=== PATIENT | female | born 1940 | race Caucasian/White ===

== ENCOUNTER 2020-11-08 17:52 | Emergency (ER) | payer OTHER ==
[~2020-11-08] VITALS: Ht 157.5 cm; Wt 51.5 kg
[2020-11-08 18:56] LABS: ABSOLUTE NEUTROPHILS 5.5 thou/uL (1.4-8.2); BASOPHILS 1.4 % (0.0-2.0); EOSINOPHILS 4.1 % (0.0-3.0); HEMATOCRIT 28.4 % (37.0-47.0); HEMOGLOBIN 9.5 gm/dL (12.0-15.0); LYMPHOCYTES 13.7 % (24.0-44.0); MCH 32.1 pg (26.0-34.0); MCHC 33.6 g/dL (28.0-37.0); MCV 95.4 fL (80.0-100.0); MONOCYTES 7.4 % (1.0-8.0); PLATELET COUNT 264 thou/uL (150-400); POLYS 73.4 % (36.0-66.0); RBC 2.98 mil/uL (4.20-5.00); RDW 13.9 % (10.5-14.5); WBC 7.5 thou/uL (4.0-11.0)
[2020-11-08 19:05] LABS: CALCIUM 9.3 mg/dL (8.5-10.1); CREATININE 1.6 mg/dL (0.6-1.0)
[2020-11-08 19:12] LABS: ALBUMIN 3.4 g/dL (3.4-5.0); TOTAL BILIRUBIN 0.3 mg/dL (0.2-1.0); TOTAL PROTEIN 6.6 g/dL (6.4-8.2)
[2020-11-08 19:17] LABS: URINE BILIRUBIN NEGATIVE (Negative); URINE BLOOD 1+ (Negative); URINE COLOR YELLOW; URINE GLUCOSE-RANDOM* NEGATIVE (Negative); URINE KETONES NEGATIVE (Negative); URINE NITRITE-REFLEX NEGATIVE (Negative); URINE PROTEIN (DIPSTICK) NEGATIVE (Negative); URINE SPECIFIC GRAVITY 1.025 (1.005-1.035); URINE UROBILINOGEN 0.2 E.U./dl (0.2-1.0)
[2020-11-08 19:20] LABS: URINE CLARITY HAZY; URINE LEUKOCYTES-REFLEX 2+ (Negative)
[2020-11-08 19:24] LABS: BACTERIA-REFLEX >30 Many /HPF (None Seen); CASTS None Seen /LPF (None Seen); CRYSTALS None Seen /LPF (None Seen); SQUAMOUS 0-3 Few /LPF (0-3); URINE RBC 3-10 Few /HPF (0-2)
[2020-11-09 05:23] VITALS: BP 140/50
[2020-11-09] MEDS ORDERED: ASA81BEC PO (06:39)
[2020-11-09] MEDS ORDERED: LIPITOR40 MG PO (06:45)
[2020-11-09] MEDS ORDERED: BUSPIRONE HCL5 MG PO (06:53)
[2020-11-09] MEDS ORDERED: FENOFIBRATE160 MG PO (06:55)
[2020-11-09] MEDS ORDERED: LISINOPRIL20 MG PO (06:57)
[2020-11-09] MEDS ORDERED: LOPERAMIDE2 MG PO (06:58)
[2020-11-09] MEDS ORDERED: TYLENOL325 M1 PO (07:00)
[2020-11-09] MEDS ORDERED: MECLIZINE HCL25 M1 PO (07:01)
[2020-11-09] MEDS ORDERED: MELATONIN3 M1 PO (07:02)
[2020-11-09] MEDS ORDERED: METFORMIN HCL500 M3 PO (07:03)
[2020-11-09] MEDS ORDERED: ZOFRAN4 MG PO (07:04)
[2020-11-09] MEDS ORDERED: SERTRALINE HCL100 MG PO (07:05)
[2020-11-09] MEDS ORDERED: PLAVIX 75 MG TA75 MG PO (07:05)
[2020-11-09] MEDS ORDERED: ZETIA10 MG PO (07:06)
--- NOTE | 2020-11-09 07:21 | EKG ---
[place] [address] [employer] [facility] [place] [address] ELECTROCARDIOGRAM REPORT Name: JUSTICE ELLISON Room #: [facility]#: [id number] Admission: 11/08/20 Attend Phys: Discharge: 11/09/20 Date of : 36 Report #: [id number] [facility] ED Test Date: 2020-11-08 Test Time: 18:21:21 Pat Name: JUSTICE ELLISON Department: Room: Gender: F Elastic Assembler: MANUELA BURTON : 1940 Requested By: Rodrigo Lucero Order Number: [id number] MD: Parviz Tolliver Measurements Intervals [place] Rate: 70 P: 11 NM: 156 QRS: -13 QRSD: 86 T: 42 QT: 416 QTc: 449 Interpretive Statements Sinus rhythm Abnormal R-wave progression, late transition No previous ECG available for comparison Electronically Signed On 11-09-2020 7:21:31 MEAT STRINGER by Parviz Tolliver [email or web address] <ELECTRONICALLY SIGNED> By: Parviz Tolliver MD, [facility] 11/09/20 0721 20 20 Parviz Tolliver MD, FACC /EPI
== END 2020-11-09 05:35 | disposition still patient (30) ==
LOC: ER 17:52
PROVIDERS: Emergency Medicine
DX: R41.0 Disorientation, unspecified (principal); E11.9 Type 2 diabetes mellitus without complications; Z88.1 Allergy status to other antibiotic agents; Z88.0 Allergy status to penicillin; Z88.2 Allergy status to sulfonamides; Z88.8 Allergy status to other drugs, medicaments and biological substances; Z20.828 Contact with and (suspected) exposure to other viral communicable diseases

== ENCOUNTER 2020-11-09 05:40 | Inpatient (IN) | payer OTHER ==
[~2020-11-09] VITALS: Ht 154.9 cm; Wt 55.8 kg
--- NOTE | 2020-11-09 06:36 | NUR ---
Patient arrived on the [facility] floor via stretcher @ 05:45 accompanied by x1 staff from [facility] Emergency Department. VS 141/68 61 97.9F 96% weight 108.2 height 5'7".Dr Hancock is the hospitalist consult, Miya Kevin YOUTH PASTOR advised @ 06:25. Laid down in bed, bed alarm set as patient is a fall risk. Patient cooperated with assessment, HRRR, Lungs CTA, ABD N x 4Q. L wrist noted to have a skin tear and bruise with 4 steri strips. Right wrist has a D/C IV site wrapped in Coban. Buttocks noted to be without skin breakdown, Incontinent of bladder. Likes to be called Rukhsana or Mrs Rodrigues. Knows that she is at a Hospital, but unsure which hospital. Knows that the President was a electromedical service engineer and that his first name is Keenan, unsure of his last name. Does not know the date, or where she lives. A&Ox3. When asked where she lives and if she feels safe, unable to answer either of these questions. Denies pain. Denies chronic pain.
[2020-11-09] MEDS ORDERED: ASA81BEC PO (06:39)
[2020-11-09] MEDS ORDERED: LIPITOR40 MG PO (06:45)
[2020-11-09] MEDS ORDERED: BUSPIRONE HCL5 MG PO (06:53)
[2020-11-09] MEDS ORDERED: FENOFIBRATE160 MG PO (06:55)
[2020-11-09] MEDS ORDERED: LISINOPRIL20 MG PO (06:57)
[2020-11-09] MEDS ORDERED: LOPERAMIDE2 MG PO (06:58)
[2020-11-09] MEDS ORDERED: TYLENOL325 M1 PO (07:00)
[2020-11-09] MEDS ORDERED: MECLIZINE HCL25 M1 PO (07:01)
[2020-11-09] MEDS ORDERED: MELATONIN3 M1 PO (07:02)
[2020-11-09] MEDS ORDERED: METFORMIN HCL500 M3 PO (07:03)
[2020-11-09] MEDS ORDERED: ZOFRAN4 MG PO (07:04)
[2020-11-09] MEDS ORDERED: SERTRALINE HCL100 MG PO (07:05)
[2020-11-09] MEDS ORDERED: PLAVIX 75 MG TA75 MG PO (07:05)
[2020-11-09] MEDS ORDERED: ZETIA10 MG PO (07:06)
[2020-11-09 12:16] VITALS: BP 157/67
--- NOTE | 2020-11-09 13:56 | NUR ---
1350 RESUMMED CARE FROM OVERNIGHT SHIFT THIS AM, PATIENT IN DAY ROOM QUIET. PATIENT ATE BREAKFAST TOOK MEDICATION CRUSHED IN APPLESAUCE PATIENT IS ALERT CONFUSED AND ORIENTED TO SELF ONLY. PATIENTS ABDOMEN SOFT BOWEL SOUNDS PRESENT LUNGS CLEAR. PATIENT IS TEARFUL BECAUSE SHE WANTS TO LEAVE PACING THE HALLS SHE HAS ANXIETY. PATIENT UNABLE TO TELL ME ABOUT SI/HI/AH/VH AT PRESENT DUE TO CONFUSION. WE TRIED DISTRACTION TO HELP BE LESS ANXIOUS AND TALKED WITH HER. WE WILL CONTINUE TO MONITOR PATIENT FOR SAFETY AND BEHAVIORS.
[2020-11-09 19:52] VITALS: BP 110/41
--- NOTE | 2020-11-10 03:45 | NUR ---
Assumed care of patient this pm shift. Patient anxious, appears fearful and states that she is scared. Alert and oriented to self. Takes medications crushed with ice cream. Incontinent of bowel and bladder. Needs assistance to toilet. Patient was difficult to get in her room as she was fearful to go in. Denies pain. Denies hi/si. Assessment shows no signs of acute distress. We will continue to monitor per hospital protocol.
--- NOTE | 2020-11-10 08:41 | NUR ---
PT FINISHED BREAKFAST AND ATTENDING GROUP. PT PARTICIPATING IN GROUP. PT TOOK MEDS THIS AM CRUSHED IN APPLE SAUCE. PT DIDN'T LIKE THE TASTE. PT LUNGS CLEAR. PT DENIES ANY PAIN. PT HAS A SKIN TEAR TO LEFT FA THAT HAS STERI-STRIPS INTACT.
[2020-11-10 09:00] VITALS: BP 110/62
[2020-11-10 09:49] VITALS: BP 168/116
--- NOTE | 2020-11-10 10:30 | NUR ---
RECHECKED PT BLOOD PRESSURE MANUALLY ON RT ARM 110/62. DR. GROSSMAN HERE FOR BP RESULTS. WILL NOT ADD ADDITIONAL NORVASC AT THIS TIME IF BP STABLE PER DR. GROSSMAN.
[2020-11-10 11:00] VITALS: BP 110/62
--- NOTE | 2020-11-10 11:10 | NUR ---
ASSISTED PT WITH BRIEF CHANGE. PT WAS IN ANOTHER ROOM WITH THE DOOR CLOSED. PT TRYING TO CHANGE SELF. ASSISTED WITH BRIEF CHANGE AND NEW PANTS. PT COOROPERATED WELL.
--- NOTE | 2020-11-10 16:06 | NUR ---
SW attempted several times to speak with the Pt and complete the psychosocial. Pt will not talk to SW and walks away when SW approaches. Pt seems fearful refusing to talk. LIBRA was able to speak with Ashlyn at [facility], and provide an update on the Pt. Sw reached out to BRIAN Green, however she was unable to talk. LIBRA will follow up.
--- NOTE | 2020-11-10 16:52 | NUR ---
APPROACHED PT FOR BLOOD SUGAR CHECK AND PT DIDN'T WANT THIS BOAT CLEANER TO CHECK. THIS BOAT CLEANER SAID NO AND SHE SAID I DIDN'T SAY NO, PT HAD THE ACTIONS OF NO BLOOD SUGAR WITH ARMS ACROSS CHEST AND SHAKING HEAD NO.
--- NOTE | 2020-11-10 17:17 | NUR ---
ENCOURAGED PT TO EAT DINNER AND SHE IS JUST PACING AROUND DINING ROOM AND PEREZ. PT STANDING AT DESK ALSO. PT NOT LETTING NEEDS KNOWN.
--- NOTE | 2020-11-10 17:54 | NUR ---
PT WAS STANDING INFRONT OF THE MEAL CART AND WASN'T WANTING TO LET GO. PT THEN GRABBED THIS STREETCAR MOTORMAN WRIST AND SQUEEZING AND TRYING TO PINCH. PULP PLANT SUPERVISOR TALKING WITH HER TO SEE IF SHE CAN WALK WITH THIS STREETCAR MOTORMAN. PT WALKING DOWN THE PEREZ WITH THIS STREETCAR MOTORMAN AND KEPT HOLDING ONTO NURSING ARMS. THIS STREETCAR MOTORMAN GOT KEYS OUT AND TO UNLOCK HER ROOM AND PT GRABBED AHOLD OF THE KEYS AND WOULDN'T LET GO. PULP PLANT SUPERVISOR CAME BACK AND ASSISTED TO GET PT TO LEFT GO OF STAFF. ANOTHER NURSE ACCOMPANIED THE PT TO THE DINING ROOM TO TRY TO HAVE HER SIT WITH HER. PT IS STANDING UP AND HOLDING ONTO PT ARMS.
--- NOTE | 2020-11-10 17:58 | NUR ---
PAGED DR. REYNA AND NOTIFIED HER ABOUT PT BEHAVIOR. DR. REYNA HERE TO ASSESS SITUATION.
--- NOTE | 2020-11-10 18:05 | NUR ---
Updates Faxed to [facility]
--- NOTE | 2020-11-10 18:45 | NUR ---
PT STILL HOLDING ONTO STAFF WRIST. TRIED TO ADM HALDOL 2MG PO IN ICE CREAM. PT RESISTING. TOLD PT SHE WOULD GET A SHOT, PT MOCKING NURSE SAYING GET A SHOT.
--- NOTE | 2020-11-10 18:45 | NUR ---
ADM HALDOL 2MG IM TO LEFT HIP WITH ASSITANCE FROM STAFF HOLDING HER ARMS.
[2020-11-11 06:11] LABS: ABSOLUTE NEUTROPHILS 2.8 thou/uL (1.4-8.2); EOSINOPHILS 5.8 % (0.0-3.0); HEMATOCRIT 29.2 % (37.0-47.0); HEMOGLOBIN 9.7 gm/dL (12.0-15.0); LYMPHOCYTES 25.8 % (24.0-44.0); MCH 31.8 pg (26.0-34.0); MCHC 33.1 g/dL (28.0-37.0); MONOCYTES 10.8 % (1.0-8.0); PLATELET COUNT 244 thou/uL (150-400); POLYS 56.6 % (36.0-66.0); RBC 3.04 mil/uL (4.20-5.00); RDW 14.1 % (10.5-14.5)
[2020-11-11 07:34] LABS: ALBUMIN 3.3 g/dL (3.4-5.0); CALCIUM 8.6 mg/dL (8.5-10.1); CREATININE 1.9 mg/dL (0.6-1.0); TOTAL BILIRUBIN 0.3 mg/dL (0.2-1.0); TOTAL PROTEIN 6.1 g/dL (6.4-8.2)
[2020-11-11 08:00] VITALS: BP 161/67
--- NOTE | 2020-11-11 08:54 | NUR ---
PT SITTING WITH SPEECH THERAPY THIS AM. PT WAS ABLE TO PARTICIPATE WITH THERAPY. PT DID SWALLOW BLOOD THINNER WHOLE. PT NEEDED OTHER MEDS CRUSHED IN APPLESAUCE. PT WAS SLOW TO EATING. PT DID WELL WITH ENSURE DRINK AND YOGART. PT CALM THIS AM AND ABLE TO BE DIRECTED.
[2020-11-11 09:59] VITALS: BP 161/67
[2020-11-11 15:30] VITALS: BP 142/78
--- NOTE | 2020-11-11 15:30 | NUR ---
PT STARTED BY STANDING AT NURSE DESK, PT NOT REQUESTING ANYTHING. PT DID START TO HOLD ONTO THIS DIE TRIMMER HANDS AND WALKING AROUND UNIT. THIS NURSE HAD TO GET OUT OF THE HOLD TO DO ANOTHER TASK. PT SEEMS TO WATCH PEOPLE AROUND HER AND TRACK WHO SHE WANTS TO TALK TOO. PT DID SIT ON COUCH AND EAT A SNACK.
--- NOTE | 2020-11-11 16:15 | NUR ---
SW was able to speak with Pt's DPOA, Heidy Green, and complete psychsocial assessment. Heidy gave a bried history. Pt has no children and begin to have issues with her cognition and paranoia after a stroke. Pt has a restricted esophagus. DPOA believes this has contributed to the Pt not eating. Pt has a Master's degree and is fluent in belarusian. Pt is not allergic to Metformin. Kapil will continue to follow
[2020-11-11 20:02] VITALS: BP 130/55
--- NOTE | 2020-11-12 00:07 | NUR ---
Assumed care on 11/11/20 @ 1900, ambulating ad raul throughout the mileu. Exit seeking, trying doors after she sees someone walk thru it. Grabs hands and is resistive to redirection. Takes another patient's bible and tears the page, Resistant to giving up the bible. Redirected to a magazine, which did not interest her.
--- NOTE | 2020-11-12 00:15 | NUR ---
Cooperated with assessment, however refused medication x2, saying it was poisoned. Dr Palomo advised of refusal and paranoia of poison and she gave an order for 2mg Haldol IM. After this was given @ 22:45, patient was offered her P.O. meds a third time, and she continued to refuse. Retired to bed @ 2330, and is in bed with eyes closed, respirations even and unlabored at this time.
[2020-11-12 06:23] LABS: HEMATOCRIT 28.8 % (37.0-47.0); HEMOGLOBIN 9.5 gm/dL (12.0-15.0); MCH 31.7 pg (26.0-34.0); MCHC 33.2 g/dL (28.0-37.0); MCV 95.7 fL (80.0-100.0); RDW 14.5 % (10.5-14.5); WBC 5.2 thou/uL (4.0-11.0)
[2020-11-12 06:50] LABS: CALCIUM 9.4 mg/dL (8.5-10.1); CREATININE 2.1 mg/dL (0.6-1.0); POTASSIUM 4.2 mmol/L (3.5-5.1)
[2020-11-12 07:47] VITALS: BP 130/66
--- NOTE | 2020-11-12 15:39 | NUR ---
DID EAT BREAKFAST AND TAKE AM MEDICATIONS IN YOGURT-ORIENTED TO CATARINA ONLY-CHAU HODGES WAS UNAWARE THAT SHE WAS IN A HOSPITAL AND DOESN'T KNOW WHY SHE IS HERE.WILL SIT WITH PEERS IN DAYRROOM BUT APPEARS HYPERVIGILANT IN MILLEU.NO NOTED INTERACTION WITH PEERS.
[2020-11-12 18:23] VITALS: BP 140/59
--- NOTE | 2020-11-13 03:50 | NUR ---
11-12-20 CARE TRANSFERRED 1900 OBSERVED PT SITTING IN DAY ROOM AT TABLE BY SELF. PT AAOX1, CLAM AND COOPERATIVE, VSS, RR EVEN AND NONLABORED RA. PT DENIES PAIN AND SI/HI. DURING MEDICATION ADMIN. PT REPORTED "SHE WOULD TAKE IT LATER" PT REMAINED CALM AND THEN EXCEPTED MEDICATION IN VANILA PUDDING CRUSHED AND HAD NO DIFFICULTIES. ZERO S/S OF ACUTE DISTRESS, PT WILL CONTINUE TO BE MONITOR PER [facility] PROTOCOL.
[2020-11-13 06:36] LABS: CALCIUM 8.9 mg/dL (8.5-10.1); CREATININE 1.5 mg/dL (0.6-1.0)
[2020-11-13 08:00] VITALS: BP 141/63
--- NOTE | 2020-11-13 14:05 | NUR ---
SW met with patient 1:1 in lieu of group due to COVID 19 restrictions. Patient was engaged and attempted to discuss her concerns but was not able to collect and express her words the way she wanted to. SW provided support. SW team will continue to monitor.
--- NOTE | 2020-11-13 14:53 | NUR ---
LIBRA faxed updates to [facility].
--- NOTE | 2020-11-13 15:06 | NUR ---
BLUNTED AFFECT AND PASSIVE BEHAVIOR IN MILLEU-ATTEMPTING TO HELP A PEER IN DAYROOM GET UP OUT OF CHAIR STATING "HE TOLD ME TOO" SPEECH VERY SOFT ALMOST A WHISPER DIFFICULT TO UNDERSTAND AT TIMES. SITS QUIETLY AT TABLE IN DAYRROM BY SELF DURING FREE TIME. COMPLINET WITH TAKING MEDS-APPETITE FAIR-GAIT STEADY WITHOUT ASSISTIVE DEVICES.
[2020-11-13 20:08] VITALS: BP 171/96
--- NOTE | 2020-11-14 04:22 | NUR ---
11-13-20 CARE TRANSFERRED 1900 OBSERVED PT SITTING IN DAY ROOM. PT AAOX1, CALM AND PLEASANT. VSS, RR EVEN AND NONLABORED ON RA. PT DENIES PAIN AND SI/HI. PT HAD NO DIFFICULTIED DURING MEDICATION ADMIN. LATER PT CAME AND STATED THAT A MAN WAS IN HER ROOM, ROOM WAS INSPECTED. PT WAS EASILY REASSURED AND ASSISTED INTO A CLEAN T-SHIRT AND GOWN AND PT BED WAS ADJUSTED FOR COMFORT. ZERO S/S OF ACUTE DISTRESS NOTED, PT WILL CONTINUE TO BE MONITOR PER [facility] PROTOCOL.
[2020-11-14 09:30] VITALS: BP 153/73
--- NOTE | 2020-11-14 17:18 | NUR ---
Assumed pt care at 0700. pt was in her room resting. Pt was calm and co-operative with care. pt took meds crushed with pudding. pt ambulates with a steady gait. pt denies si/hi, denies pain. pt had a bowel movement today. Assessment completed, VSS. no signs of distress noted. will continue to monitor pt.
[2020-11-14 20:13] VITALS: BP 118/50
[2020-11-14 21:38] VITALS: BP 118/58
[2020-11-14 22:47] VITALS: BP 122/64
--- NOTE | 2020-11-14 22:55 | NUR ---
ASSESSMENTS CHARTED, MEDS CHARTED GIVEN. PATIENT SEATED IN THE ACTIVITY ROOM AT START OF SHIFT. LAB CALLED AND REPORTED PATIENT IS POSITIVE FOR COVID. PATIENT WAS TAKEN BACK TO HER ROOM UNTIL SHE COULD BE TRANSFERED TO THE COVID UNIT ON 3W. PATIENT WAS ASSESSED AND EVENING MEDS WERE GIVEN. PATIENT WAS TRANSFERED TO 3W IN A WHEEL CHAIR BY RN. VERBAL REPORT WAS GIVEN TO VIKI AT BEDSIDE.
--- NOTE | 2020-11-14 23:05 | NUR ---
PT CONFUSED. ALERT TO PERSON. UNAWARE OF CORRECT PLACE ,TIME, SITUATION, MTH, DATE, YEAR ETC.. INSTRUCTED PT ON FALL PRECAUTIONS. BED ALARM IS ON. PT TRANSFERRED FROM 5TH FLOOR DUE TO COVID +. NO COUGHING OR SOA NOTED. PT IS A POOR HISTORIAN. FOLLOWS COMMANDS. MOOD APPEARS TO BE APPROPRIATE PRESENTLY. VSS AFEBRILE. WILL CONTINUE TO MONITOR PT FOR CHANGES.
[2020-11-15 05:59] VITALS: BP 142/54
--- NOTE | 2020-11-15 07:18 | NUR ---
PT SLEPT MOST OF NIGHT . VSS AFEBRILE THIS AM . INC IN BREIFS. ZGARD TO BOTTOM. NO BREAKDOWN NOTED. PT HAS BEEN PLEASANT AND COOPERATIVE TONIGHT
[2020-11-15 08:00] VITALS: BP 108/56
--- NOTE | 2020-11-15 11:20 | NUR ---
PT CARE TAKEN OVER THIS AM, ALERT AND ORIENTED X2,CONFUSE AND AND IMPULSIVE AT TIMES. DENIES ANY PAIN, NSUEA AND VOMITING. PT IS A SET UP TO FEED. 1110 PT COVID THRESHOLD CAME BACK NON CONTAGIOUS AND CAN TRANSFER BACK TO [facility]. REPORT GIVEN TO CHEO FROM [facility]
[2020-11-15 11:40] VITALS: BP 108/56
--- NOTE | 2020-11-15 11:40 | NUR ---
PT ARRIVED TO [facility] ROOM 527-B. PT BROUGHT OUT TO DINING ROOM FOR LUNCH. PT UNSTEADY ON FEET AND NEEDED A W/C. PT TALKATIVE AND SEEMS MORE AWARE OF SURROUNDINGS. PT HAS SOME YELLOW EXUDATE AROUND EYE LASHES. HARD TO UNDERSTAND PT SPEECH. PT TALKS IN A SOFT SPOKEN VOICE.
--- NOTE | 2020-11-15 12:30 | NUR ---
ASSISTED PT BACK TO HERE ROOM. PT WALKED WITH STAFF AND GAIT UNSTEADY. PT GIVEN WATER TO DRINK. PT HAD TWO CUPS OF TEA WITH HER AND A COOKIE. PT DID HAVE ONE COUGH AFTER DRINKING TEA. PT HAS OLD SKIN TEAR TO LEFT FA THAT IS HEELED. PT LAUGHED WITH STAFF DURING CONVERSATION.
--- NOTE | 2020-11-15 14:49 | NUR ---
WALKING AROUND THE UNIT WITH PT. SHE IS CARRING AROUND TWO CUPS OF TEA AND A COOKIE. SHE IS GOING TO DOORS AND CHECKING FOR EXITS. PT CRYING AND SAYING SHE NEEDS TO GO. ASKED PT WHERE SHE NEEDS TO GO, SHE SAID THE HOSPITAL. TOLD PT SHE WAS AT THE HOSPITAL. PT STILL NOT WANTING TO GO SIT IN DINING ROOM WITH THIS SWEATBAND SHAPER AND DRINK HER TEA. PT GAIT IS STEADY NOW AT THE POINT OF OBSERVATION.
--- NOTE | 2020-11-15 15:45 | NUR ---
PT STAYING AT DOORS TO TRY AND GET OUT. PT STATED SHE NEEDED TO GO. PT SLIDE DOWN BY THE DOOR. ASSISTED PT TO W/C WITH LAP LATA IN FRONT. PT STATED SHE WAS TIRED.
--- NOTE | 2020-11-15 17:30 | NUR ---
PT GETTING AGITATED AFTER DINNER, WANTING TO GET UP WITHOUT HELP. PT WAS HAVING ANXIETY ABOUT NEEDING TO CALL HOME. ADM HALDOL 2MG PO CRUSHED IN ICE CREAM. PT TOOK WITHOUT ANY DIFFICULTIES.
--- NOTE | 2020-11-16 05:34 | NUR ---
Assumed care of pt at 1900. Pt in dining room sitting in w/c. Pt calm and cooperative with cares and medication compliant. Takes medications crushed with pudding. Pt denies having any pain this shift. Pt has been redirectable when needed. Pt rested in bed throughout night. Pt is a high fall risk and has protocols in place. Pt A&O x 1. Pt is on 12 min checks for safety. Will continue to monitor for any changes in mood/behavior and/or safety.
[2020-11-16 09:44] VITALS: BP 144/67
--- NOTE | 2020-11-16 11:30 | NUR ---
RT Progress Note- Rukhsana has been present in the milieu and about 50% of recreation therapy groups since admitting to [facility]. She has particularly been present in exercise groups, but is uncooperative in groups that require verbalization as she often refuses to speak or speaks extremely soft. In the afternoon, patient's exit seeking behaviors seem to increase and she is not as cooperative with redirection. RT team will continue to encourage her participation in recreation therapy groups as well as provide individual activities to decrease restlessness and wandering.
--- NOTE | 2020-11-16 14:01 | NUR ---
PATIENT WAS IN BED WHEN CARE ASSUMED, ASSISTED UP BY STAFF FOR BREAKFAST, SHE WAS ABLE TO FEED SLEF, TOOK MORNING MEDICATION CRUSHED IN APPLE SOURCE. PATIENT WAS CALM, COOPERATIVE WITH CARE THIS MORNING. AT ABOUT 1315HRS, SHE STARTED GETTING AGITATED, IRRITABLE, ATTEMPTING TO GET OUT OF CHAIR WITHOUT ASSISTANCE, STAFF CONSTANTLY REDIRECTING HER. PRN HALDOL 2MG GIVEN TO PATIENT AT 1333HOURS, WELL TOLERATED. PT WORKED WITH PATIENT THIS AFTERNOON , AND RECOMMENDED PATIENT "CAN USE WALKER TO AMBULATE". PATIENT DENIES SUICIDAL/HOMICIDAL IDEATION, NOT ABLE TO APPROPRIATELY RESPOND TO FURTHER ASSESSMENT QUESTIONS DUE TO COGNITIVE IMPAIRMENT. NO SIGN OF ACUTE DISTRESS NOTED AT THIS TIME, WILL CONTINUE TO REDIRECT, AND MONITOR FOR SAFETY.
[2020-11-16 19:27] VITALS: BP 95/32
[2020-11-17 00:23] VITALS: BP 116/75
--- NOTE | 2020-11-17 00:29 | NUR ---
Assumed care for pt at 1900. Pt sitting in dining room in w/c with lap nate in place for safety. Pt affect is flat, but brighten with interaction. Pt was medication compliant and takes meds crushed. Pt denies SI/HI and pain. Pt became upset when in her room around 0005 when she thought she saw some man comein with a gun. Pt was reassured that she was safe and no one here had a gun or would hurt her. Pt returned to bed. Pt is on 12 min checks for safety. Will continue to monitor for changes in mood/behavior. Pt has worked with PT and has, per report, been cleared to ambulate independently with walker.
[2020-11-17 09:26] VITALS: BP 157/59
[2020-11-17 10:45] VITALS: BP 114/56
[2020-11-17 11:45] VITALS: BP 109/40
--- NOTE | 2020-11-17 15:02 | NUR ---
Alert and orientated to name only. Denies SI/HI. Up ambulating with regular steady gait with walker. Confused speech at times. Independent with eating. Calm and compliant with meds, given crushed in gravy. Breath sounds clear. Reg HR auscultated. Color pink with brisk capillary refill and palpable periperhal pulses. +1 pitting edema to top of feet. Independent with voiding. Yellow urine and formed brown stool per toilet. Active bowel sounds over soft, rounded abdomen. Attending group. 1040 SW Lynn Phelps called for help, saw pt sitting on floor in entrance of room with walker. Pt. states she was on her way to BR when she fell. No s/o injury, denies pain. VSS. Pupils equal and briskly reactive. Heidy Green DPOA notified. Asked if she was using walker and if she reported being dizzy. Pt. had been ambulating with walker with regular, steady gait in day room just prior to incident.
[2020-11-17 19:29] VITALS: BP 104/38
--- NOTE | 2020-11-17 23:18 | NUR ---
Assumed care on 11/17/20 @ 1900, ambulating in the mileu. Confused, exit seeking and defiant when redirected. Allowed assessment, HRRR, Lungs CTA bilat, ABD N x 4Q, Reports BM today. When asked name, responds, "Griffin" multiple times. Haldol prn 2mg po provided @ 2100. Became calmer, however did not retire to bed. Tylenol 650 provided for 6/10 leg pain. Also refused to sit in recliner, Chrystal chair to rest. Will continue to monitor as per unit protocol for safety and comfort.
[2020-11-18 01:36] VITALS: BP 104/38
[2020-11-18 07:53] VITALS: BP 108/64
--- NOTE | 2020-11-18 15:50 | NUR ---
Alert and orientated to name only. Confused speech with occasional lucid comments. Denies SI/HI. Compliant and cooperative this AM. Participating in groups. Cooperative with med given around noon but then became resistant with ZOOLOGY PROFESSOR and nurse television station manager. They attempted to place her in gerichair with lap nate for saftey but she became agitated and combative grabbing, kicking and hitting. Settled somewhat when pt placed on 1:1, stimulation decreased and remaining staff members stepped back. Pt remained restless and then agitated pulling off lap nate and repeatedly attemping to get out of chair by putting legs over side, pulling off lap nate and pushing back against chair. 2mg haldol given IM after behavior continued to escalate where she was unable to be redirected and she starting becoming physically aggressive again. Agitation increased significantly after haldol with multiple attempts to settle her down including rolling gerichair down hallways. After about 45 min she quieted and then fell asleep. Was able to ambulate with assistance to toilet and was cooperative. Currently in gerichair with lap nate fastened in front, watching TV with peers without s/o distress. Breath sounds clear. Reg HR auscultated. Color pink with brisk capillary refill and palpable peripheral pulses. + 1 edema in lower extremities. Yellow urine per toilet X 2. Active bowel sounds over soft, rounded abdomen.
[2020-11-18 16:46] LABS: CALCIUM 8.6 mg/dL (8.5-10.1); CREATININE 1.7 mg/dL (0.6-1.0); POTASSIUM 4.2 mmol/L (3.5-5.1)
[2020-11-18 17:04] VITALS: BP 114/44
--- NOTE | 2020-11-19 02:52 | NUR ---
Assumed pt care at 1930. pt was oriented to self. pt denies si/hi, pt denies pain. Assessments completed VSS. pt ambulates with a walker. pt took meds crushed without difficulty. pt was aggressive at approximately 1999, she was hitting and kicking staffs. pt was redirectable. WILL CONTINUE TO MONITOR PT.
[2020-11-19 08:18] VITALS: BP 122/58
--- NOTE | 2020-11-19 08:30 | NUR ---
PT OUT IN DINING ROOM IN ARLEEN-CHAIR. PT SEEMS SLEEPY THIS AM. PT HAS NO COMPLAINTS.
[2020-11-19 09:22] VITALS: BP 122/58; BP 149/93
--- NOTE | 2020-11-19 12:34 | NUR ---
PT WAKING UP AT THIS TIME FROM SLEEPING. PT DOES SMILE WHEN ASKED. PT DID TAKE MEDS WHOLE TODAY. PT ENCOURAGED TO DRINK. PT DID HAVE A COUGH AFTER DRINKING. PT LIKES TO DRINK ENSURE SHAKES. PT LUNGS CLEAR. NO SIGNS OF BEHAVIOR AT THIS TIME. PT SEEMS PLEASANT AND COOROPERATIVE.
--- NOTE | 2020-11-19 18:15 | NUR ---
PT TAKEN TO HER ROOM TO GET CHANGED. PT HAD SMALL AMT INCON. URINE. PT ABLE TO STAND FOR BRIEF CHANGE. PT CLOTHES TAKEN TO BE WASHED, PT HAS YELLOW SHIRT AND BLUE PANTS. PT RT EYE WAS MATTED SHUT, PT ALLOWED THIS LEASE PURCHASE DRIVER TO WASH EYE. PT HAS BEEN RESTING TODAY MORE IN ARLEEN-CHAIR. NO BEHAVIORS NOTED FROM PT.
[2020-11-19 19:35] VITALS: BP 87/41
[2020-11-20 05:52] VITALS: BP 87/41
--- NOTE | 2020-11-20 06:01 | NUR ---
Assumed care on 11/19/20 @ 1900, seated in a gerry chair in the day room, awake alert, oriented x3, to person and president. Not oriented to todays date and hospital/hospital name. Cooperated with assessment, HRRR, Lungs CTA bilat, ABD normoactive BS. C/O lower extremity pain of 6/10 , provided Acetaminaphen 650 @ 2120 and upon follow up noted to be sleeping. Will continue to monitor for safety and comfort as per unit protocol.
[2020-11-20 08:36] VITALS: BP 126/72
[2020-11-20 08:45] VITALS: BP 126/72
--- NOTE | 2020-11-20 09:00 | NUR ---
PT SITTING IN DINING ROOM THIS AM. PT TRYING TO GET UP OUT OF THE CHAIR WHEN STAFF IS NOT LOOKING. PT STATED SHE NEEDS TO GO SEE IF SOMEONE WAS HERE. PT LUNGS CLEAR. PT UNABLE TO TAKE MEDS WHOLE TODAY. PT NEEDS MEDS CRUSHED AND PUT IN FOOD. PT TOOK MEDS WITHOUT ANY ISSUES.
--- NOTE | 2020-11-20 11:30 | NUR ---
PT GETTING MORE AGGITATED. PT WANTING TO GET UP OUT OF CHAIR. STAFF WALKED PT WITH WALKER AROUND THE UNIT. OFFERED PT IS SHE NEEDED TO USE BATHROOM. PT ALSO ASKED IF SHE WANTS TO TALK TO HER DOV CURTIS, PT REFUSED. PT WALKED BACK TO DINING ROOM FROM WALKING AROUND THE UNIT.
--- NOTE | 2020-11-20 12:06 | NUR ---
PT TOOK OLANZIPINE 5MG SCHEDUALED. PT TOOK IN ICE CREAM. PT SITTING DOWN AT TABLE AND FEEDING SELF LUNCH.
--- NOTE | 2020-11-20 15:16 | NUR ---
LIBRA sent updates to [facility].
--- NOTE | 2020-11-20 18:23 | NUR ---
PT HAS BEEN SITTING IN CHAIR WITH CHAIR ALARM. PT STILL IS IMPULSIVE ABOUT GETTING UP WITHOUT HELP. PT DOES FOLLOW COMMANDS WHEN TELLING HER TO SIT.
[2020-11-20 19:46] VITALS: BP 93/39
[2020-11-20 21:25] VITALS: BP 94/40
--- NOTE | 2020-11-21 05:13 | NUR ---
11-20-20 CARE TRANSFERRED 1899. OBSERVED PT SUPINE IN BED RESTING WITH EYES CLOSED. RECEIVED REPORT FROM EDUCATIONAL CONSULTANT ON VS, PT EASILY AWAKEN TO VOICE, AND BED WAS USED TO REPOSITION PT INTO SITTING POSITION, PT DENIES ANY PAIN AND SI/HI/VAH. AND MANUAL B/P 94/40, APICAL PULSE 56, RR 16 EVEN AND NONLABORED ON RA. METOPROLOL MEDICATION HELD R/T POC. PT BED WAS READJUSTED FOR COMFORT, ZERO S/S OF ACUTE DISTRESS NOTED, PT WILL CONTINUE TO BE MONITOR PER [facility] PROTOCOL.
[2020-11-21 09:30] VITALS: BP 106/45
[2020-11-21 11:46] LABS: ABSOLUTE NEUTROPHILS 4.3 thou/uL (1.4-8.2); BASOPHILS 0.9 % (0.0-2.0); EOSINOPHILS 5.1 % (0.0-3.0); HEMATOCRIT 31.1 % (37.0-47.0); HEMOGLOBIN 9.8 gm/dL (12.0-15.0); LYMPHOCYTES 21.1 % (24.0-44.0); MCH 25.9 pg (26.0-34.0); MCHC 31.4 g/dL (28.0-37.0); MCV 82.6 fL (80.0-100.0); MONOCYTES 14.8 % (1.0-8.0); PLATELET COUNT 294 thou/uL (150-400); POLYS 58.1 % (36.0-66.0); RBC 3.77 mil/uL (4.20-5.00); RDW 15.9 % (10.5-14.5); WBC 7.5 thou/uL (4.0-11.0)
[2020-11-21 12:02] LABS: CALCIUM 8.8 mg/dL (8.5-10.1); CREATININE 1.5 mg/dL (0.6-1.0); MAGNESIUM 2.3 mg/dL (1.8-2.4); POTASSIUM 4.2 mmol/L (3.5-5.1)
[2020-11-21 13:51] LABS: URINE BILIRUBIN NEGATIVE (Negative); URINE BLOOD NEGATIVE (Negative); URINE CLARITY CLEAR; URINE COLOR YELLOW; URINE GLUCOSE-RANDOM* NEGATIVE (Negative); URINE KETONES NEGATIVE (Negative); URINE NITRITE-REFLEX NEGATIVE (Negative); URINE PROTEIN (DIPSTICK) NEGATIVE (Negative); URINE UROBILINOGEN 0.2 E.U./dl (0.2-1.0)
[2020-11-21 14:01] LABS: URINE LEUKOCYTES-REFLEX 1+ (Negative)
[2020-11-21 14:08] LABS: CASTS None Seen /LPF (None Seen); SQUAMOUS 0-3 Few /LPF (0-3)
[2020-11-21 14:09] LABS: BACTERIA-REFLEX None Seen /HPF (None Seen); CRYSTALS None Seen /LPF (None Seen); URINE RBC 0-2 Rare /HPF (0-2); URINE WBC-REFLEX 0-5 Rare /HPF (0-5)
--- NOTE | 2020-11-21 14:10 | NUR ---
Assumed pt care at 0700. pt was oriented to self. pt was combative, aggressive with care. pt was hitting and scratching with her fingers. pt was redirected but pt continued to hit. pt would not co-operate with care and assessments. AT 0731 PT WAS GIVEN 2mg of IM Haldol. pt ambulates with a gerichair. pt takes her medication whole without difficulty.pt is confused , no sign of si/hi noted, no sign of distress noted at this time. UA COLLECTED AND SENT TO LAB. WILL CONTINUE TO MONITOR.
--- NOTE | 2020-11-21 14:55 | NUR ---
PT keeps taking off her chair alarm. sound of the chair alarm gets pt more irritated. chair alarm was removed from pt chair. will continue to monitor.
[2020-11-21 19:38] VITALS: BP 115/50
[2020-11-21 20:20] VITALS: BP 115/50
--- NOTE | 2020-11-22 02:04 | NUR ---
PATIENT HAS BEEN CALM AND COOPERATIVE MOST OF SHIFT. SHE WAS SITTING UP IN ARLEEN CHAIR AT 1900. SHE DOES NOT KEEP LAP LATA ON OR CHAIR ALARM. SHE BECOMES AGITATED WITH BOTH. FREQUENT ROUNDING DONE TO ASSESS SAFETY OF PATIENT. ARLEEN CHAIR IS LOCKED. PATIENT LIKES TO PLAY WITH LAPBUDDY AND BLANKET. PATIENT HAD HS SNACK OF APPLESAUCE AND ICECREAM. HER GLUCOSE WAS 173. NO INSULIN ORDERED AT THIS TIME. PATIENT BECAME RESTLESS AT ONE POINT AND I ENCOURAAGED THE AID TO WALK PATIENT TO THE BATHROOM AND SEE IF THIS WOULD HELP. PATIENT IS A/0X1 AND CONFUSED. PATIENT DID ENJOY WALKING AND WAS THEN DIRECTED BACK TO HER ARLEEN CHAIR. SHE CURRENTLY IS RESTING WITH EYES CLOSED AND FEET ELEVATED. PATIENT TOOK HER MEDS CRUSHED IN WATER. CONTINUING TO MONITOR.
[2020-11-22 09:25] VITALS: BP 125/55
--- NOTE | 2020-11-22 10:40 | NUR ---
Assumed pt care at 0700. pt was co-operative with meds admin and assessments. pt was oriented to self. pt took meds crushed with apple sauce. assessments completed, VSS. pt denies si/hi. pt denies pain. approximately 1040, pt is irritable and agitated. pt was redirected. pt continously removes her lap nate and chair alarms. pt ambulates with a Chrystal chair. will continue to monitor.
[2020-11-22 19:23] VITALS: BP 101/36
[2020-11-22 20:40] VITALS: BP 101/36
--- NOTE | 2020-11-23 02:53 | NUR ---
PATIENT SAT UP IN ARLEEN CHAIR IN DINING ROOM THIS EVENING UNTIL BED TIME. PATIENT IS A/0X1. SHE WAS CALM BUT RESTLESS FOR A BIT. SHE DID HAVE HS SNACK . HER HS ACCUCHECK GLUCOSE WAS 125 BEFORE MEDS. PT EXPRESSED BEING TIRED AND WAS ASSISTED TO BED. SHE HAS BEEN CONTINENT TONIGHT. SHE DENIES PAIN/SI/HI. NO SIGNS OF AVH NOTED. PT'S BED IN LOW POSITION AND BED ALARM IS ON. ROUTINE ROUNDS TO ASSESS SAFETY AND STATUS OF PATIENT. CONTINUING TO MONITOR. PT HAD A LARGE FORMED BM TONIGHT.
[2020-11-23 10:30] VITALS: BP 114/47
[2020-11-23 10:53] VITALS: BP 114/47
--- NOTE | 2020-11-23 10:59 | NUR ---
ASSUMED CARE AT 0700 TODAY. PT. IS SITTING IN A CHAIR. SHE IS COOPERATIVE WITH ASSESSMENT AND WITH TAKING MEDICATIONS TODAY. NO NEW PROBLEMS NOTED OR VOICED. PT. ATE BREAKFAST, AND WAS PRESENT WITH MORNING GROUP.
--- NOTE | 2020-11-23 15:45 | NUR ---
RT Progress Note--Rukhsana has been present in the milieu and in recreation therapy groups, though minimally engaged. During the start of this review period, patient was very impulsive and would stand up and appear as if she needed to hurry to get somewhere. She has since shown decreased restlessness and ability to remain in group though her participation is limited. [employer] will continue to encourage her presence and improved participation.
[2020-11-23 19:07] VITALS: BP 108/39
[2020-11-23 19:08] VITALS: BP 114/75
--- NOTE | 2020-11-24 05:01 | NUR ---
11-23-20 CARE TRANSFERRED 1900 OBSERVED PT SITTING IN ARLEEN CHAIR IN DAY ROOM. PT AAOX1, VSS, RR EVEN AND NONLABORED ON RA, PT DENIES PAIN AND SI/HI AND NO SH/HO BEHAVIORS NOTED. PT HAS REMAINED CALM AND COOPERATIVE. DURING MEDICATION PT HAD NO DIFFICULTIES, BUT NOTED PT WAS COMPULSIVE/IMPULSIVE AND HOLDING SEVERAL CHAIR ALARMS AND REFUSING TO RELEASE THEM, BUT PT REMAINED SMILING AND CALM. ZERO S/S OF ACUTE DISTRES NOTED, PT WILL CONTINUE TO BE MONITOR PER [facility] PROTOCOL.
[2020-11-24 08:30] VITALS: BP 110/37
--- NOTE | 2020-11-24 08:32 | NUR ---
PT SITTING IN DINING ROOM. PT FEEDING SELF. PT DID TAKE BLOOD THINNER MED WHOLE, PT COUGHED AFTER TAKING MED, OFFERED WATER TO DRINK. PT TOOK REST OF MED CRUSHED IN APPLESAUCE. PT LUNGS CLEAR. PT UP WITH X1 ASSIST. PT PLEASANT AND SOFT SPOKEN.
[2020-11-24 09:34] VITALS: BP 110/37
--- NOTE | 2020-11-24 12:48 | NUR ---
PT TAKEN TO BATHROOM VIA WALKING FROM DINING ROOM. PT STEADY ON FEET WITH STAND-BY ASSIST. PT ALLOWED THIS VICE PRESIDENT OF [employer] MARK[employer] TO CHANGE HER SHIRT AND PUT ON NEW YELLOW SHIRT. PT VOIDED AND BRIEF WAS DRY.
--- NOTE | 2020-11-24 18:25 | NUR ---
PT FINISHED EATING DINNER. PT HOLDING ONTO MENU PT WALKING AROUND THE DINING ROOM. PT IS WALKING WITH STAND-BY ASSIST, PT STEADY ON FEET HAS EPISODES OF SWAYING GAIT.
[2020-11-24 19:00] VITALS: BP 140/60
--- NOTE | 2020-11-25 06:05 | NUR ---
11-25-20 CARE TRANSFERRED 1900 OBSERVED PT SITTING IN DAY ROOM. LATER PT AAOX1, VSS, RR EVEN AND NONLABORED ON RA, PT REMAINED CALM AND COOPERATIVE. OBSERVED PT WALKING WITH ASSISTANCE TO DAY ROOM, SLOW SHUFFLING UNSTEADY GAIT. PT HAD NO DIFFICULTIES DURING MEDICATION. ZERO S/S OF ACUTE DISTRESS NOTED, PT WILL CONTINUE TO BE MONITOR PER [facility] PROTOCOL.
[2020-11-25 09:38] VITALS: BP 118/43
[2020-11-25 12:25] VITALS: BP 118/43
--- NOTE | 2020-11-25 14:30 | NUR ---
1410 RESUMMED CARE FROM OVERNIGHT SHIFT THIS AM, PATIENT IN DAY ROOM ASLEEP IN ARLEEN CHAIR. PATIENT WOKE UP ATE BREAKFAST TOOK MEDICATION CRUSHED IN APPLESAUCE. PATIENT DENIES SI/HI/AH/VH AT PRESENT PATIENT ALERT ORIENTED TO SELF AND PLACE FROGOT YEAR AND DATE. PATIENTS ABDOMEN SOFT BOWEL SOUNDS PATIENTS LUNGS CLEAR. PATIENT PARTICIPATES IN GROUPS NO BEHAVIORS THIS SHIFT WILL CONTINUE TO MONITOR PATIENT FOR BEHAVIORS AND SAFETY.
--- NOTE | 2020-11-25 15:11 | NUR ---
LIBRA spoke with Ashlyn at [facility] concerning discharge. Ashlyn did not have any questions or concerns concerning discharge. Ashlyn stated [facility] would provide transportation. D/C set for 11/28/2020 @ 1030am. Updates have been faxed to the facility
--- NOTE | 2020-11-25 22:30 | NUR ---
SITTING QUIETLY IN DAYRROM SO FAR THIS SHIFT-DID AMBULATE TO BR FROM DOORWAY WITH SBA X1-SMILING AT STSFF ON INITIAL APPROACH AND WILL ANSWER QUESTIONS IN APPROPRIATE MANNER. SIRENA PAIN/DISCOMFORT. TOOK HS MEDS CRUSHED IN ICE CREAM. DID BECOME RESISITVE AZND AGITED WITH INCONTINENT CARE GRABBIN STAFF ARM AND REFUSING TO LET GO-ALSO GRABBING ONTO SOILED BRIEF TO PREVEDNT REMOVAL. ORIENTED TO NAME ONLY. REMAINS HIGH FALLS RISK-CHAIR ALARM IN PLACE.
[2020-11-26 03:25] VITALS: BP 118/43
[2020-11-26 06:52] VITALS: BP 105/64
[2020-11-26 10:22] VITALS: BP 122/60
--- NOTE | 2020-11-26 12:03 | NUR ---
1200 RESUMMED CARE FROM OVERNIGHT THIS AM, PATIENT IN DAY ROOM IN ARLEEN CHAIR QUIET. PATIENT AT BREAKFAST TOOK MEDICATION CRUSHED IN APPLESAUCE WIHTOUT INCIDENCE. PATIENT ALERT ORIENTED TO SELF ONLY PATIENT CANNOT TELL ME ABOUT SI/HI/AH/VH AT PRESENT. PATIENTS ABDOMEN SOFT BOWEL SOUNDS PRESENT LUNGS CLEAR, PATIENT PARTICPATED IN GROUPS AND LIKES LOOKING THROUGH MAGAZINES. PATIENT HAS NOT DISPLAYED ANY BEHAVIORS THIS SHIFT WILL CONTINUE TO MONITOR PATIENT FOR SAFETY AND BEHAVIORS.
[2020-11-26 21:42] VITALS: BP 110/56
--- NOTE | 2020-11-27 01:20 | NUR ---
SITTING IN DAYROOM CONVERSING WITH PEERS AND EATING SNACK UPON INITAL ASSESSMENT AT 1930-SOME NOTED SPONTANEOUS SMILING AND CONVERSATION WITH PEERS. CHAIR ALARM IN PLACE-WALKER NEXT TO PT-REMINDED NOT TO GET UP ON OWN SEVERAL TIMES BY STAFF-APPROX 20 MINUTES LATER FOUND WALKING DOWN HALLWAY TOWARD EXIT DOOR STATING SHE "JUST CURIOUS ABOUT WHAT WAS BEHIND THAT DOOR"
--- NOTE | 2020-11-27 04:37 | NUR ---
DID TAKE HS MEDS CRUSHED IN APPLESAUCE-SAD FACIAL EXPRESSION AND TEARS INEYES WHEN SPEAKING ABOUT WANTING TO GO HOME. AMBULATED TO RESTROOM AND DID VOID LARGE AMOUNT LIGHT YELLOW URINE AT APPROX 2300 -AWAKE AND RESTLESS IN GERICHAIR AT APPROX. 0345-TAKEN TO BATHROOM AT THIS TIME AND VOIDED SMALL AMOUNT. GAIT UNSTEADY-REMAINS ON FALLS PRECAUTIONS. DENIES C/O PAIN/DISCOMFORT. TAKES PO FLUIDS FAIR.
[2020-11-27 07:45] VITALS: BP 127/56
[2020-11-27 10:50] VITALS: BP 127/56
--- NOTE | 2020-11-27 12:35 | NUR ---
LIBRA faxed updates to [facility] [place]. LIBRA team will continue to monitor.
--- NOTE | 2020-11-27 14:56 | NUR ---
ASSUMED CARE AT 0700 THIS MORNING. PT. IN BED. SHE WAS GOTTEN UP, TAKEN TO THE BATHROOM AND THEN TO THE DINING ROOM FOR BREAKFAST. SHE REMAINS QUIET CONFUSED, ORIENTED TO HER OWN NAME ONLY. SHE WAS SAT INTO A CHAIR WITH A LAP LATA. SHE TOOK HER MORNING MEDICATIONS CRUSHED AND IN APPLESAUCE. SHE COULD NOT PARTICIPATE IN GROUP VERY WELL. SHE WAS TAKEN FOR A WALK SEVERAL TIMES TODAY AND TAKEN TO THE BATHROOM. HER BLOOD PRESSURE MEDICATIONS ARE ON HOLD FOR THE PAST FEW DAYS DUE TO LOW B/P'S. SHE IS NOT ABLE TO STATE IF SHE IS HI/SI/AVH DUE TO HER CONFUSION.
[2020-11-27 19:31] VITALS: BP 100/48
--- NOTE | 2020-11-28 00:16 | NUR ---
Assumed care on 11/27/20 @ 1900, Seated in chair at a table in the day room. Restless and gets up without concern for her personal safety. Ambulated to the toilet and incontinent care provided. Ambulated to the day room and seated at the table with a snack. Cooperated with assessment and took meds crushed in apple sauce. Haldol 2mg p.o. provided for anxiety and restlessness. Retired to bed at . Bed in low position, bed alarm set, will continue to monitor as per unit protocol for safety and protocol.
[2020-11-28 00:36] VITALS: BP 100/48
[2020-11-28 09:06] VITALS: BP 123/54
--- NOTE | 2020-11-28 09:14 | NUR ---
ASSUMED CAARE AT 0700 THIS MORNING. PT. IS DRESSED AND ON THE UNIT FOR BREAKFAST. SHE IS SLOWLY FEEDING HERSELF. MEDICATIONS WERE CRUSHED AND PUT IN APPLESAUCE. SHE REFUSED THEM BY SPITTING THEM OUT. SHE WAS PLEASANT AND COOPERATIVE WITH HER ASSESSMENT. ASSESSMENT WNL. SHE STATED SHE HAD A BM LAST EVENING. SHE DENIES DIARRHEA THOUGH. SHE ATE BREAKFAST ONLY FAIRLY.
[2020-11-28 14:38] VITALS: BP 127/56
--- NOTE | 2020-11-28 14:49 | NUR ---
ASSUMED CARE THIS MORNING AT 0700. SHE WAS UP AT THE DINING ROOM TABLE THIS MORNING. SHE WAS IRRITABLE. SHE REFUSED HER MORNING MEDICATIONS BY SHAKING HER HEAD AND SPITTING OUT THE MEDICATIONS. HER MEDICATIONS WERE CRUSHED AND PUT IN APPLESAUCE. DR. WETZEL NOTIFIED OF THE SAME. PT. DID GET A MEDICATION ADDED AT 1300. SHE WAS COOPERATIVE OF TAKING THIS MEDICATION CRUSHED AND IN APPLESAUCE. AT LUNCH SHE WAS TRYING TO OPEN HER DIETARY SUPPLEMENT, BUT SHE SMASHED THE CARTON ALL OVER THE TABLE AND FLOOR (NOT INTENTIONALLY). SHE HAD TO GO TO HER ROOM AND CHANGE HER CLOTHING. WILL CONTINUE TO MONITOR.
[2020-11-28 19:15] VITALS: BP 108/54
--- NOTE | 2020-11-29 05:27 | NUR ---
11-29-20 CARE TRANSFERRED 1900 OBSERVED PT SITTING IN GERICHAIR IN DAY ROOM. PT PRESENTS RESTLESS, PT AAOX1, VSS, RR EVEN AND NONLABORED ON RA, PT DENIES PAIN AND SI/HI. PT BEEN COOPERATIVE DURING NURSING ASSESSMENT. DURING MEDICATION ADMIN PT HAD NO DIFFICULTIES. LATER ASSISTED PT WITH WALKER TO BATHROOM, BRIEF HEAVY WITH YELLOW URINE AND PT VOIDED IN TOLILET, PT CLEANED WITH SOAP AND WATER. PT BED WAS ADJUSTED FOR COMFORT. ZERO S/S OF ACUTE DISTRESS NOTED, PT WILL CONTINUE TO BE MONITOR PER [facility] PROTOCOL.
[2020-11-29 10:53] VITALS: BP 130/66; BP 150/66
--- NOTE | 2020-11-29 12:40 | NUR ---
LIBRA recieved a call from Heidy Green, Pt's DPOA. SW provided an updat on the Pt and answered genral question about Pt's care. Heidy expressed appriciation for the information. Heidy also stated she is having issues with her cell phone so if a message is left she won't recieve it for about 2 hours. Heidy stated it is okay to leave her a message she may not repond timely due to this issue.
--- NOTE | 2020-11-29 13:38 | NUR ---
1330 RESUMMED CARE FROM OVERNIGHT SHIFT THIS AM, PATIENT IN DAY ROOM SITTING AT TABLE. PATIENT AT BREAKFAST TOOK MEDICATION CRUSHED IN APPLESAUCE WITHOUT INCIDENCE. PATIENT IS ALERT ORIENTED TO SELF ONLY PATIENT IS UP AND WALKING THE HALLS WITH WALKER THAT SHE SOMETIMES LEAVES IN PEREZ. PATIENTS ABDOMEN SOFT BOWEL SOUNDS PRESENT LUNGS CLEAR. PATIENT IS UNABLE TO TELL ME DEFINITY TELL ME ABOUT SI/HI/AH/VH AT PRESENT. PATIENT ATTENDS GROUP AND PARTICIPATES PATIENT TALKS TO SOME OF THE OTHER PATIENTS. WILL CONTINUE TO MONITOR PATIENT FOR SAFETY AND BEHAVIORS.
[2020-11-29 19:32] VITALS: BP 104/50
--- NOTE | 2020-11-30 04:50 | NUR ---
11-29-20 CARE TRANSFERRED 0 OBSERVED PT WALKING IN HALLWAY WITHOUT WALKER. PT AAOX1, VSS, RR EVEN AND NONLABORED ON RA, NOTED PT HANDS COLD, PT HAS SKIN TEAR BI-LAT AND DRESSING, CLEAN, DRY AND INTACT. PT DENIES SI/HI AND PAIN AT THIS TIME. PT REMAINED CALM AND PLESANT THOUGHOUT NURSING ASSESSMENT. LATER EASILY REDIRECTED PT TO SITTING IN DAY ROOM AND TO SPACE OUT HER ACTIVE OF WALKING WITH REST IN BETWEEN. PT HAD NO DIFFICULTIES DURING MEDICATION ADMIN. PT ASSISTED TO BATHROOM AND HEAVY SATURATED BRIEF, SOME REDNESS NOTED IN GROIN BUT NO SKIN BREAKDOWN, CLEANED WITH SOAP AND WATER. PT BED WAS ADJUSTED FOR COMFORT. ZERO S/S OF ACUTE DISTRESS NOTED, PT WILL CONTINUE TO BE MONITOR PER [facility] PROTOCOL.
[2020-11-30 06:00] LABS: ABSOLUTE NEUTROPHILS 3.4 thou/uL (1.4-8.2); HEMATOCRIT 25.3 % (37.0-47.0); HEMOGLOBIN 8.3 gm/dL (12.0-15.0); MCHC 32.6 g/dL (28.0-37.0); MCV 98.1 fL (80.0-100.0); MONOCYTES 9.9 % (1.0-8.0); PLATELET COUNT 235 thou/uL (150-400); POLYS 56.1 % (36.0-66.0); RBC 2.58 mil/uL (4.20-5.00); RDW 15.1 % (10.5-14.5)
[2020-11-30 06:01] LABS: CALCIUM 8.9 mg/dL (8.5-10.1); CREATININE 1.6 mg/dL (0.6-1.0); POTASSIUM 4.3 mmol/L (3.5-5.1)
[2020-11-30 09:52] VITALS: BP 105/45
--- NOTE | 2020-11-30 13:24 | NUR ---
LIBRA spoke with Ashlyn at [facility] concerning discharge. Ashlyn asked about the crystal sullivan and gerry chair. LIBRA provided an update on the matter. Ashlyn was okay with the information given. Discharge is set foe 12/01/2020 @1500. [facility] will transport.
--- NOTE | 2020-11-30 15:12 | NUR ---
0700 ASSUMED CARE OF PATIENT,PATIENT SLEEPING IN CHAIR IN DAYROOM. 0800 PATIENT AWAKE AND ASSISTED WITH MEAL. PATIENT IS QUIET AND COOPERATIVE. MEDICATIONS GIVE CRUSHED IN APLLESAUCE WITHOUT DIFFICULTY. PATIENT DROWSY OFF AND ON. LS CLEAR BS ACTIVE. NO C/O PAIN. 0240 PATIENT UP AMB TO COUCH TO JOIN GROUP. PATIENT AWAKE AND ALERT. PARTICIPATION NOTED WITH PATIENT LAUGHING AND SMILING. AFTER GROUP PATIENT SITTING QUIETLY ON COUCH.
[2020-11-30 19:59] VITALS: BP 123/67
[2020-11-30 23:21] VITALS: BP 123/67
--- NOTE | 2020-11-30 23:40 | NUR ---
Assumed care on 11/30/20 @ 1900, in gerry chair, cooperates with assessment and compliant with medication administration, taking meds crushed in applesauce. Tylenol 650 provided for general pain of 6/10, upon follow up is noted to be sleeping. Will continue to monitor for safety and comfort.
[2020-12-01] MEDS ORDERED: ZYPREXA 5 MG TAB5 M1 PO ×2 (09:12→09:13)
[2020-12-01] MEDS ORDERED: ACIDOPHILUS1 EAC4 PO (09:14)
[2020-12-01] MEDS ORDERED: PROTONIX 20 MG20 M1 PO (09:14)
--- NOTE | 2020-12-01 09:18 | NUR ---
0700 ASSUMED CARE OF PATIENT, PATIENT SITTING IN GERICHAIR THIS AM. PATIENT CALM AND NOTED SMILING. PATIENT ASSISTED WITH EATING BREAKFAST. AWAKE AND ALERT, ORIENTED TO SELF. 0915 PATIENT PRESENT IN GROUP THIS AM. WILL CONTINUE TO OBSERVE
[2020-12-01 09:28] VITALS: BP 139/55
--- NOTE | 2020-12-01 16:07 | NUR ---
PATIENT AMB WITH WALKER FOR A FEW MIN THEN LEAVES WALKER BEHIND AND CONTINUES TO WALK WITH ASSISTANCE X1. BACK TO CHAIR AND SITS QUIETLY AND CALMER AFTER WALKING. PATIENT PARTICIPATES WITH GROUP. 1448 PATIENT IS DC'D TO [facility] TRANSP[facility] FROM FACILITY. BELONGING IN HAND AND TRANSFERED TO [facility] FROM FACILITY. 1520 SPOKE WITH FACILITY AND REPORT GIVEN TO RECIEVING NURSE BANSAL. 1545 DC INSTRUCTIONS GIVEN TO BRIAN Landon PATIENTS CHIN.
[2020-12-01 20:33] LABS: GLYCOHEMOGLOBIN (HGB A1C) 6.5 % (4.8-5.6)
--- NOTE | 2020-12-03 13:59 | D ---
[facility] [place] [address] DISCHARGE SUMMARY Name: JUSTICE ELLISON Room #: 527A-A [facility] IN Martin.Meng.#: [id number] Admission: 11/09/20 Attend Phys: Margo Palomo MD Discharge: 12/01/20 Date of : 36 Report #: [id number] THIS REPORT FOR: cc: Melissa Adams MD, Lou K. MD Kerstein, Andrew H. DO ~ DATE OF SERVICE: 12/01/2020 INPATIENT PSYCHIATRIC DISCHARGE SUMMARY Attending psychiatrist at time of discharge Hal Tucker DO. Psychiatrist during admission were Margo Palomo MD and Anil Mcleod M.D. Consulting hospitalist this admission is Kapil Nixon M.D. DISCHARGE DIAGNOSES: Major neurocognitive disorder, likely due to Alzheimer's disease with behavioral disturbance, improved. Medical comorbidities were hypertension; Escherichia coli urinary tract infection, which she completed antimicrobial therapy for; diabetes mellitus type 2; hyperlipidemia; history of cerebrovascular accident with residual aphasia. She is discharging to [facility] psychiatric medical care at receiving facility. ACTIVITY LEVEL: As tolerated. The patient requires a walker and assistance with gait. MEDICATIONS AT TIME OF DISCHARGE: Olanzapine 5 mg p.o. b.i.d. and 5 mg p.o. at 1300 for mood stabilization, Lactobacillus acidophilus 1 tablet p.o. b.i.d. for bowel health; pantoprazole 20 mg p.o. daily for GERD, aspirin 81 mg p.o. daily for heart protection, atorvastatin 40 mg p.o. at bedtime for hyperlipidemia, lisinopril 20 mg p.o. daily for hypertension, p.r.n. loperamide, sertraline 100 mg p.o. daily and Zetia 10 mg p.o. daily, also for clot prevention Plavix 75 mg p.o. daily and ondansetron 4 mg p.o. p.r.n. for nausea. REASON FOR PSYCHIATRIC ADMISSION: Back on 11/08/2020, an 80-year-old female who presented to the ED from SNF. She has had increased confusion, accusing staff attempting to poison her, exit seeking behavior. HOSPITAL COURSE: The patient was admitted to the geriatric psychiatry unit, initially seen by Dr. Palomo. The patient was started on 2.5 mg Zyprexa at bedtime. Zoloft was decreased to 50 mg, initial plan to taper off. Also, BuSpar was discontinued. The patient had somewhat of improving and taking step back on a course. When I assumed her care on 11/28/2020, we added afternoon dose of [facility] [address] [place] [address] DISCHARGE SUMMARY Name: KILO ELLISONTo Fan Room #: 527A-A [facility] IN M.R.#: [id number] Admission: 11/09/20 Attend Phys: Margo Palomo MD Discharge: 12/01/20 Date of : 36 Report #: [id number] olanzapine. The patient had a little bit of sundowning, but was redirectable. She has had a good course this week so far. VITAL SIGNS: On date of discharge as follows: Temperature 36.1, pulse 72, respirations 17, BP 139/55, O2 sat 93%. Admitted labs, last labs on 11/30/2020; H and H 8.3 and 25.3, white count 6.0, platelets 235. Chemistries last done 11/30/2020; creatinine 1.6, BUN 34, sodium 140, potassium 4.3, chloride 107, bicarbonate 24. Estimated GFR 31, calcium 8.9, magnesium 2.0. Urinalysis; 1+ leukocyte esterase, otherwise negative. COVID-19 PCR serology on the was negative. PCR was positive on 11/14/2020. PHYSICAL EXAMINATION: Well-developed, ill-appearing female, stated age. Attention limited, concentration limited. Speech is normal rate. Thought process linear, limited thought content, fair poverty of thought. No psychomotor agitation or psychomotor retardation. Denied SI, HI. Denied hopeless, helpless. Mood and affect; fairly euthymic, congruent. Insight limited. Judgment limited. Fund of knowledge below average. Prognosis for this patient is guarded to poor given age, having a major neurocognitive disorder, number of physical comorbidities. She get to have certainly psychiatric followup at nursing facility is recommended within 1 month. <ELECTRONICALLY SIGNED> By: Hal Tucker DO 12/03/20 [id number] Hal Tucker, /nt
== END 2020-12-01 14:48 | DRG 56 ==
LOC: SBH 05:40 → 3W 05:40 → SBH 05:40 → 3W 11-14 21:08 → SBH 11-15 12:24
PROVIDERS: Hospitalist; Nurse Practitioner; ADMIT Psychiatry & Neurology Psychiatry; ATTEND Psychiatry & Neurology Psychiatry
DX: G30.9 Alzheimer's disease, unspecified (principal); F02.81 Dementia in other diseases classified elsewhere, unspecified severity, with behavioral disturbance; U07.1 COVID-19; N17.0 Acute kidney failure with tubular necrosis; N39.0 Urinary tract infection, site not specified; F01.51 Vascular dementia, unspecified severity, with behavioral disturbance; F23 Brief psychotic disorder; F28 Other psychotic disorder not due to a substance or known physiological condition; B96.20 Unspecified Escherichia coli [E. coli] as the cause of diseases classified elsewhere; E78.5 Hyperlipidemia, unspecified; F32.9 Major depressive disorder, single episode, unspecified; F41.9 Anxiety disorder, unspecified; K21.9 Gastro-esophageal reflux disease without esophagitis; I12.9 Hypertensive chronic kidney disease with stage 1 through stage 4 chronic kidney disease, or unspecified chronic kidney disease; N18.2 Chronic kidney disease, stage 2 (mild); E11.22 Type 2 diabetes mellitus with diabetic chronic kidney disease; Z66 Do not resuscitate; Z88.1 Allergy status to other antibiotic agents; Z88.5 Allergy status to narcotic agent; Z88.0 Allergy status to penicillin; I69.320 Aphasia following cerebral infarction; Z88.2 Allergy status to sulfonamides; Z88.8 Allergy status to other drugs, medicaments and biological substances
CPT/HCPCS: 10779; 10880